=== PATIENT | male | born 1990 | race Caucasian/White ===

== ENCOUNTER 2018-07-11 09:18 | Day surgery (SDC) | payer BC, OTHER ==
[2018-06-28 17:22] VITALS: BMI 29.2
[~2018-07-11] VITALS: Ht 180.3 cm; Wt 97.5 kg
[2018-07-11] VITALS (21 sets, daily range): BP systolic 103–126; BP diastolic 44–61; PULSE 48–82; RESP 13–25; Ht 180.3 cm; Wt 97.5 kg
--- NOTE | 2018-07-11 12:25 | PREAC ---
Date/Time of Note Date/Time of Note DATE: 07/11/18 TIME: 12:24 Anesthesia Eval and Record Evaluation Time Pre-Procedure Interview DATE: 07/11/18 TIME: 12:24 Age 27 Sex male NPO: 8 hrs Preoperative diagnosis right knee lateral meniscus tear Planned procedure right knee operative arthroscopy, partial lateral meniscectomy Past Medical History Past Medical History: None Surgery & Anesthesia Issues No known issue Meds Anticoagulation: No Beta Angela within 24 hr: No Reason Beta Angela not given: Pt. not on B-Angela No Active Prescriptions or Reported Meds Meds reviewed: Yes Allergies Coded Allergies: No Known Allergy (Unverified , 07/11/18) Allergies Reviewed: Yes Labs/Studies Labs Reviewed: Reviewed by anesthesiologist test: N/A Pre-procedure Exam Last vitals Vital Signs Date Temp Pulse Resp B/P (MAP) Pulse Ox O2 O2 Flow FiO2 Time Delivery Rate 07/11/18 97.9 67 16 126/61 99 Room Air 10:21 (82) Airway: Adequate mouth opening, Adequate thyromental dist Mallampati: Mallampati II Teeth: Normal Lung: Normal Heart: Normal ASA Physical Status ASA physical status: 1 Emergency: None Planned Anesthetic General/MAC: LMA Nerve block: Other (possible adductor) Planned Pain Management Single shot nerve block, Parenteral pain med Pre-operative Attestations Prior to commencing anesthesia and surgery, the patient was re-evaluated, there was verification of: *The patient's identity *The results of appropriate recent lab work and preoperative vital signs *The above evaluation not changing prior to induction *Anesthetic plan, risk benefits, alternative and complications discussed with patient/family; questions answered; patient/family understands, accepts and wishes to proceed. YOU MCMULLEN MD Jul 11, 2018 12:25
[2018-07-11] MEDS ORDERED: hydrALAzine 20 MG INJ IV PRN (12:30)
[2018-07-11] MEDS ORDERED: OXYCODONE/ACETAMINOPHEN (5/325) TAB PO PRN ×3 (12:30→15:00)
[2018-07-11] MEDS ORDERED: ONDANSETRON 4 MG INJ IV PRN ×2 (12:30→15:00)
[2018-07-11] MEDS ORDERED: PROCHLORPERAZINE 10 MG INJ IV PRN (12:30)
[2018-07-11] MEDS ORDERED: LABETALOL HCL 20MG INJ IV PRN (12:30)
[2018-07-11] MEDS ORDERED: FENTAnyl 50 MCG/ML VIAL IV PRN ×3 (12:30)
[2018-07-11] MEDS ORDERED: DIPHENHYDRAMINE 50 MG INJ IV PRN (12:30)
[2018-07-11] MEDS ORDERED: HYDROmorphONE 1 MG/5 ML IV SYRINGE IV PRN ×3 (12:30)
[2018-07-11] MEDS ORDERED: MEPERIDINE 25 MG INJ IV PRN (12:30)
[2018-07-11] MEDS ORDERED: MIDAZOLAM 1 MG/ML 2 ML INJ ONE (12:42)
[2018-07-11] MEDS ORDERED: LIDOCAINE 2% (SDV) 5 ML INJ ONE (12:42)
[2018-07-11] MEDS ORDERED: PROPOFOL 20 ML ONE ×2 (12:42→13:04)
[2018-07-11] MEDS ORDERED: CEFAZOLIN 1 GM INJ ONE (13:04)
[2018-07-11] MEDS ORDERED: HYDROmorphONE 2 MG/ML SYG ONE (13:05)
[2018-07-11] MEDS ORDERED: ONDANSETRON 4 MG INJ ONE (13:08)
[2018-07-11] MEDS ORDERED: FAMOTIDINE 20 MG INJ ONE (13:08)
[2018-07-11] MEDS ORDERED: DEXAMETHASONE 4 MG/ML 5 ML INJ ONE (13:08)
[2018-07-11] MEDS ORDERED: LABETALOL HCL 20MG INJ ONE (13:30)
[2018-07-11] MEDS ORDERED: ROPIVACAINE 0.5 % 30 ML VIAL ONE (14:15)
[2018-07-11] MEDS ORDERED: ROCURONIUM 50 MG INJ ONE (14:18)
[2018-07-11] MEDS ORDERED: NEOSTIGMINE 3 MG/3 ML SYRINGE ONE ×2 (14:20)
[2018-07-11] MEDS ORDERED: GLYCOPYRROLATE 0.4 MG INJ ONE ×2 (14:20)
[2018-07-11] MEDS ORDERED: SOD CHLORIDE 0.9% 1,000 ML IV SCH (14:33)
--- NOTE | 2018-07-11 14:33 | OPPN ---
Date/Time of Note Date/Time of Note DATE: 07/11/18 TIME: 14:32 Operative Report Preoperative Diagnosis Right knee lateral meniscus tear Postoperative Diagnosis same Operation/Procedure Performed Arthroscopic partial lateral meniscectomy of right knee Surgeon see signature line surgeon's assistant DO Nirali Anesthesia: general Estimated blood loss: minimal Transfusion Required none Specimen none Grafts/Implants none Complications none JJ POOL MD Jul 11, 2018 14:33
--- NOTE | 2018-07-11 14:51 | PAC ---
Date/Time of Note Date/Time of Note DATE: 07/11/18 TIME: 14:50 Post-Anesthesia Notes Post-Anesthesia Note Last documented vital signs Vital Signs Date Temp Pulse Resp B/P (MAP) Pulse Ox O2 O2 Flow FiO2 Time Delivery Rate 07/11/18 98.5 14:48 07/11/18 67 16 126/61 99 Room Air 10:21 (82) Activity: WNL Respiratory function: WNL Cardiovascular function: WNL Mental status: Baseline Pain reasonably controlled: Yes Hydration appropriate: Yes Nausea/Vomiting absent: Yes Comments BP: 108/50 HR: 60 RR: 14 T: 98.5 SaO2: 100% YOU MCMULLEN MD Jul 11, 2018 14:51
[2018-07-11] MEDS ORDERED: morphine 2 MG INJ IV PRN (15:00)
--- NOTE | 2018-07-11 16:02 | OPR ---
DATE OF OPERATION: 07/11/2018 PREOPERATIVE DIAGNOSIS: Complex tear lateral meniscus, right knee. POSTOPERATIVE DIAGNOSES: 1. Complex undersurface tear of the anterior horn and mid zone of the lateral meniscus, right knee. 2. Pathologic suprapatellar plica. 3. 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 OPERATIONS PERFORMED: 1. Arthroscopy, right knee. 2. Partial lateral meniscectomy. 3. Excision of suprapatellar plica. SURGEON: Jj Barclay MD ELECTRICAL MANUFACTURING TECHNICIAN: Lloyd Campoverde MD ANESTHESIA: General. TOURNIQUET TIME: Zero. DESCRIPTION OF PROCEDURE: The patient was taken to operating room and placed in supine position. Sa tisfactory general anesthesia was administered. A 2 grams Ancef were given intravenously. The right knee was prepped and draped in usual manner. Exam under anesthesia revealed full range of motion, A P drawer and Kd 1+, pivot shift negative. No varus-valgus instability. Standard arthroscopic portals were used. The undersurface of the patella was smooth and glistening. The trochlea was smooth and glistening. There was abnormal suprapatellar plica superolaterally. Me dial gutter had no loose bodies. Lateral gutter had no loose bodies. Popliteus was intact. The lat eral compartment was entered. There was a complex undersurface oblique flap tears of lateral meniscu s from the anterior horn and looked like it was from the undersurface of the remaining frag ment which was also an oblique flap tear which had retracted to the mid zone underneath the superior flap of the lateral meniscus. There were some fissures along lateral tibial plateau, minimal grade I chondromalacia of the lateral femoral condyle. Posterior horn was intact. Anterior and posterior c ruciates were intact, origins and insertions. Medial compartment was entered. Minimal grade I, slig ht grade II chondromalacia, small area of the medial femoral condyle. Medial meniscus looked normal. Probe inserted. The medial meniscus was palpated and completely intact. Posterior cruciate was pa lpated and was intact as was the anterior cruciate. Electrosurgery was used to vaporize the ligament um mucosum which was blocking our way into the lateral compartment. The lateral meniscus was palpate d. The flap was fairly significant on the undersurface coming off the anterior horn and the undersur face of the mid zone. Curved and straight baskets were used to remove the flap from the mid zone. G rasper was used to remove it from the knee. Shaver was used to smooth and contour the edges. Basket was used to contour it from the posterior horn through the mid zone to good healthy looking tissue. A banana knife was then used along the anterior horn including the undersurface tear and contoured a nd then came out the anterior horn. Grasper was used. The piece was removed. Looking from the medi al portal, no other further tears were seen. The shaver was used to further contour the edges. Sreekanth tional basket was used to smooth the anterior horn and mid zone and then a shaver was used to smooth and remove all loose debris. Chondroplasty was performed along the lateral tibial plateau. Stable r im with good meniscus still left was achieved. There was still good amount of room to the popliteal hiatus. Electrosurgery and shaver were used to cut and remove the suprapatellar plica, which was abn ormal and debriding across lateral aspect of the knee. Bleeders were coagulated as encountered. The knee was then irrigated clear. All loose debris was removed. Wounds were closed with 3-0 black nyl on and Steri-Strips. Knee was infiltrated with 0.5% ropivacaine. Compression dressing was applied a s well as an ice pack. The patient was brought to recovery room in stable condition. Interprocedure sponge and needle count was correct. The patient tolerated the procedure well. PIERCING ARTIST ORTHOPEDIC SURGEON: During the procedure, an certified physician assistant orthopedic surgeon was used at [facility]. The certified physician assistant helped with manipulating the arthroscope, with distracting the knee and assist ing with meniscal removal. Without a skilled certified physician assistant, this could not have been done and should be compensated appropriately. Dictated By: JJ PERALTA/KADE Conf#: [id number] DID#: [id number]
== END 2018-07-11 17:20 | disposition home or self-care (01) ==
LOC: SDS 09:18
PROVIDERS: ATTEND Orthopaedic Surgery
DX: S83.271D Complex tear of lateral meniscus, current injury, right knee, subsequent encounter (principal); X58.XXXD Exposure to other specified factors, subsequent encounter; M94.261 Chondromalacia, right knee
CPT/HCPCS: 29881; J0690; J1100; J1170; J2250; J2405; J2710; J2795